=== PATIENT | male | born 1995 | race Hispanic/Latino ===

== ENCOUNTER 2021-07-26 07:43 | Day surgery (SDC) | payer BC, OTHER ==
[2021-07-25 10:47] LABS: BASOPHILS % (AUTO) 0.3 % (0.0-5.0); EOSINOPHILS % (AUTO) 3.5 % (0.0-8.0); HEMATOCRIT 44.5 % (42-54); LYMPHOCYTES % (AUTO) 24.9 % (21.0-51.0); MEAN CORPUSCULAR HEMOGLOBIN 29.5 pg (27.0-33.0); MEAN CORPUSCULAR VOLUME 89.2 fL (79-99); NEUTROPHILS % (AUTO) 60.2 % (40.0-77.0); PLATELET COUNT (AUTO) 277 K/uL (130-400); RED BLOOD CELL COUNT(AUTO) 4.99 MIL/uL (4.50-6.20); RED CELL DISTRIBUTION WIDTH 12.6 % (11.0-15.5); WHITE BLOOD COUNT (AUTO) 6.8 K/uL (4.8-10.8)
[2021-07-25 11:06] LABS: CREATININE 0.9 mg/dL (0.5-1.5); POTASSIUM 4.3 mmol/L (3.5-5.1)
[2021-07-25 15:53] VITALS: BP 150/83
[2021-07-26] VITALS (15 sets, daily range): BP systolic 106–139; BP diastolic 55–91
[~2021-07-26] VITALS: Ht 182.9 cm; Wt 115.4 kg
[~2021-07-26 07:43] MED LIST: MELATONIN PO
[2021-07-26] MEDS ORDERED: 0.9%NACL 1000ML 1,000 ML IV SCH (08:00)
[2021-07-26] MEDS ORDERED: CEFAZOLIN SODIUM 1 GM VIAL IVP ONE (08:00)
[2021-07-26] MEDS ORDERED: LIDOCAINE HCL MPF 1% 5ML VIAL ONE (10:46)
[2021-07-26] MEDS ORDERED: PROPOFOL 10 MG/ML 20ML VIAL IV ONE (10:47)
[2021-07-26] MEDS ORDERED: MIDAZOLAM HCL 1 MG/ML 2ML VIAL ONE (10:47)
[2021-07-26] MEDS ORDERED: FENTANYL CITRATE PF 50 MCG/1 ML 5ML AMP IV ONE (10:47)
[2021-07-26] MEDS ORDERED: BUPIVACAINE/PF 0.25% 30ML VIAL IJ ONE (10:58)
[2021-07-26] MEDS ORDERED: METHYLENE BLUE 5 MG/ML AMP ONE (10:58)
[2021-07-26] MEDS ORDERED: BACITRACIN 28.4 GM OINT TP ONE (11:00)
[2021-07-26] MEDS ORDERED: CEFAZOLIN SODIUM 2 GM VIAL IV ONE (11:15)
[2021-07-26] MEDS ORDERED: DEXAMETHASONE SOD PHOSPHATE 10MG/ML 1ML VIAL ONE (11:23)
[2021-07-26] MEDS ORDERED: ONDANSETRON 4MG INJ ONE (11:23)
[2021-07-26] MEDS ORDERED: LIDOCAINE HCL 2% JELLY 5 ML ONE (11:40)
[2021-07-26] MEDS ORDERED: LIDOCAINE HCL 2% PF 20 ML JEL DISP.SYRIN MM ONE (11:41)
[2021-07-26] MEDS ORDERED: LIDOCAINE HCL 2% JELLY 5 ML TP ONE (12:00)
[2021-07-26] MEDS ORDERED: BUPIVACAINE/EPI/PF 0.25% 10ML VIAL IJ ONE (12:15)
== END 2021-07-26 14:08 | disposition home or self-care (01) ==
LOC: DAH 07:43
PROVIDERS: ATTEND Student in an Organized Health Care Education/Training Program
DX: K60.3 Anal fistula (principal); Z20.822 Contact with and (suspected) exposure to COVID-19; K62.89 Other specified diseases of anus and rectum; Z82.49 Family history of ischemic heart disease and other diseases of the circulatory system; Z82.5 Family history of asthma and other chronic lower respiratory diseases; Z79.899 Other long term (current) drug therapy
CPT/HCPCS: 36415; 46020; 80048; 85025; 87635; A4215; A4221; A4222; A4223; A4344; A4606; A4663; A4930; A5113; A6260; C9803; J0690 ×2; J1100; J2250; J2405; J2704; J3010; J3490 ×3; J7030; Q9968

== ENCOUNTER 2021-11-14 22:07 | Inpatient (IN) | payer BC, OTHER ==
[~2021-11-14] VITALS: Ht 182.9 cm; Wt 118.8 kg
[2021-11-14] MEDS ORDERED: 0.9%NACL 1000ML 1,000 ML IV SCH (23:00)
[2021-11-14] MEDS ORDERED: ZOSYN 3.375GM +NS 50ML IV STA (23:02)
[2021-11-14] MEDS: CLINDAMYCIN IVPB 600MG/50ML 50 ML IV SCH (23:28)
[2021-11-14] MEDS ORDERED: ACETAMINOPHEN 325 MG TAB PO PRN (23:30)
[2021-11-14] MEDS ORDERED: MORPHINE 4 MG SYG IV PRN (23:30)
[2021-11-14] MEDS ORDERED: MORPHINE 2 MG SYG IV PRN (23:30)
[2021-11-15] MEDS: 0.9%NACL 1000ML 1,000 ML IV SCH ×3 (00:46→19:30)
[2021-11-15 01:54] LABS: BASOPHILS % (AUTO) 0.2 % (0.0-5.0); EOSINOPHILS % (AUTO) 3.4 % (0.0-8.0); HEMATOCRIT 44.8 % (42-54); LYMPHOCYTES % (AUTO) 23.3 % (21.0-51.0); MEAN CORPUSCULAR HEMOGLOBIN 29.4 pg (27.0-33.0); MEAN CORPUSCULAR HGB CONC 33.3 g/dL (32.0-36.0); MEAN CORPUSCULAR VOLUME 88.5 fL (79-99); MONOCYTES % (AUTO) 10.7 % (3.0-13.0); NEUTROPHILS % (AUTO) 62.2 % (40.0-77.0); PLATELET COUNT (AUTO) 282 K/uL (130-400); RED BLOOD CELL COUNT(AUTO) 5.06 MIL/uL (4.50-6.20); RED CELL DISTRIBUTION WIDTH 12.3 % (11.0-15.5); WHITE BLOOD COUNT (AUTO) 10.7 K/uL (4.8-10.8)
[2021-11-15 01:58] LABS: CREATININE 0.9 mg/dL (0.5-1.5); POTASSIUM 3.6 mmol/L (3.5-5.1)
[2021-11-15 02:02] LABS: ALBUMIN 4.1 g/dL (3.5-5.0); BILIRUBIN,TOTAL 0.3 mg/dL (0.2-1.0); TOTAL PROTEIN, SERUM 7.8 g/dL (6.0-8.3)
[2021-11-15] MEDS: ZOSYN 3.375GM+NS 50ML 50 ML IV SCH ×3 (05:03→21:31)
[2021-11-15 06:26] LABS: BASOPHILS % (AUTO) 0.2 % (0.0-5.0); EOSINOPHILS % (AUTO) 3.4 % (0.0-8.0); HEMATOCRIT 41.2 % (42-54); LYMPHOCYTES % (AUTO) 16.8 % (21.0-51.0); MEAN CORPUSCULAR HEMOGLOBIN 29.6 pg (27.0-33.0); MEAN CORPUSCULAR VOLUME 89.6 fL (79-99); MONOCYTES % (AUTO) 11.6 % (3.0-13.0); NEUTROPHILS % (AUTO) 67.6 % (40.0-77.0); PLATELET COUNT (AUTO) 255 K/uL (130-400); RED CELL DISTRIBUTION WIDTH 12.3 % (11.0-15.5); WHITE BLOOD COUNT (AUTO) 11.2 K/uL (4.8-10.8)
[2021-11-15 06:29] LABS: CREATININE 0.9 mg/dL (0.5-1.5); PHOSPHORUS 4.6 mg/dL (2.5-4.9); POTASSIUM 4.6 mmol/L (3.5-5.1)
[2021-11-15 07:02] LABS: INR 0.99 (0.85-1.15); PROTHROMBIN TIME 10.8 SEC (9.6-11.6)
[2021-11-15 07:03] LABS: PARTIAL THROMBOPLASTIN TIME 31.3 SEC (26.3-35.5)
[2021-11-15] MEDS: CLINDAMYCIN IVPB 600MG/50ML 50 ML IV SCH ×3 (07:57→23:59)
[2021-11-15] MEDS: FAMOTIDINE 20MG VIAL IV SCH ×2 (09:00→21:00)
[2021-11-15 11:05] VITALS: BP 132/78
[2021-11-15 15:00] VITALS: BP 118/71
[2021-11-15 20:30] VITALS: BP 137/92
[2021-11-16 01:20] VITALS: BP 122/61
[2021-11-16 04:01] VITALS: BP 93/59
[2021-11-16] MEDS: ZOSYN 3.375GM+NS 50ML 50 ML IV SCH ×3 (05:18→21:16)
[2021-11-16] MEDS: 0.9%NACL 1000ML 1,000 ML IV SCH ×2 (05:30→12:47)
[2021-11-16 05:34] LABS: BASOPHILS % (AUTO) 0.2 % (0.0-5.0); EOSINOPHILS % (AUTO) 5.2 % (0.0-8.0); HEMATOCRIT 40.2 % (42-54); LYMPHOCYTES % (AUTO) 22.4 % (21.0-51.0); MEAN CORPUSCULAR HEMOGLOBIN 29.1 pg (27.0-33.0); MEAN CORPUSCULAR HGB CONC 32.3 g/dL (32.0-36.0); MEAN CORPUSCULAR VOLUME 89.9 fL (79-99); MONOCYTES % (AUTO) 13.7 % (3.0-13.0); PLATELET COUNT (AUTO) 280 K/uL (130-400); RED BLOOD CELL COUNT(AUTO) 4.47 MIL/uL (4.50-6.20); RED CELL DISTRIBUTION WIDTH 12.1 % (11.0-15.5); WHITE BLOOD COUNT (AUTO) 8.6 K/uL (4.8-10.8)
[2021-11-16 06:00] LABS: ALBUMIN 3.4 g/dL (3.5-5.0); BILIRUBIN,TOTAL 0.3 mg/dL (0.2-1.0); CRP QUANTITATIVE 40.4 mg/L (0.00-9.0); POTASSIUM 4.2 mmol/L (3.5-5.1); TOTAL PROTEIN, SERUM 6.8 g/dL (6.0-8.3)
[2021-11-16 08:00] VITALS: BP 121/61
[2021-11-16] MEDS: FAMOTIDINE 20MG VIAL IV SCH ×2 (08:21→21:00)
[2021-11-16 11:33] VITALS: BP 124/67
[2021-11-16 16:00] VITALS: BP 131/61
[2021-11-16 20:00] VITALS: BP 133/87
[2021-11-16] MEDS ORDERED: FAMOTIDINE 20MG TAB ONE (21:27)
[2021-11-16] MEDS: FAMOTIDINE 20MG TAB PO SCH (21:48)
[2021-11-17] VITALS: BP 129/79
[2021-11-17] MEDS: 0.9%NACL 1000ML 1,000 ML IV SCH ×2 (01:30→21:46)
[2021-11-17 04:00] VITALS: BP 131/80
[2021-11-17] MEDS: ZOSYN 3.375GM+NS 50ML 50 ML IV SCH ×3 (04:57→20:55)
[2021-11-17 08:00] VITALS: BP 115/57
[2021-11-17] MEDS: FAMOTIDINE 20MG TAB PO SCH ×2 (08:41→20:55)
[2021-11-17 12:00] VITALS: BP 108/49
[2021-11-17 16:00] VITALS: BP 110/46
[2021-11-17 20:00] VITALS: BP 143/79
[2021-11-18] VITALS (7 sets, daily range): BP systolic 111–146; BP diastolic 58–77
[2021-11-18] MEDS: ZOSYN 3.375GM+NS 50ML 50 ML IV SCH ×3 (04:10→20:51)
[2021-11-18 05:30] LABS: HEMATOCRIT 43.2 % (42-54); MEAN CORPUSCULAR HGB CONC 31.7 g/dL (32.0-36.0); MEAN CORPUSCULAR VOLUME 91.3 fL (79-99); RED BLOOD CELL COUNT(AUTO) 4.73 MIL/uL (4.50-6.20); RED CELL DISTRIBUTION WIDTH 12.1 % (11.0-15.5)
[2021-11-18 05:54] LABS: ALBUMIN 3.4 g/dL (3.5-5.0); BILIRUBIN,TOTAL 0.1 mg/dL (0.2-1.0); POTASSIUM 4.3 mmol/L (3.5-5.1); TOTAL PROTEIN, SERUM 6.8 g/dL (6.0-8.3)
[2021-11-18] MEDS: FAMOTIDINE 20MG TAB PO SCH ×2 (09:54→20:51)
[2021-11-19] MEDS: 0.9%NACL 1000ML 1,000 ML IV SCH (03:57)
[2021-11-19 04:39] VITALS: BP 115/50
[2021-11-19] MEDS: ZOSYN 3.375GM+NS 50ML 50 ML IV SCH ×3 (04:45→21:39)
[2021-11-19 07:05] VITALS: BP 123/71
[2021-11-19] MEDS: FAMOTIDINE 20MG TAB PO SCH ×2 (09:00→21:39)
[2021-11-19 11:05] VITALS: BP 134/80
[2021-11-19 15:05] VITALS: BP 123/74
[2021-11-19 21:58] VITALS: BP 133/63
[2021-11-19 23:58] VITALS: BP 130/61
[2021-11-20] VITALS (24 sets, daily range): BP systolic 105–168; BP diastolic 54–98
[2021-11-20] MEDS: 0.9%NACL 1000ML 1,000 ML IV SCH ×3 (04:21→23:27)
[2021-11-20] MEDS: ZOSYN 3.375GM+NS 50ML 50 ML IV SCH ×3 (04:21→21:06)
[2021-11-20] MEDS: FAMOTIDINE 20MG TAB PO SCH ×2 (09:00→20:59)
[2021-11-20] MEDS ORDERED: NEOSTIGMINE 5MG/5ML SYR IV ONE (13:31)
[2021-11-20] MEDS ORDERED: PROPOFOL 10 MG/ML 20ML VIAL IV ONE (13:31)
[2021-11-20] MEDS ORDERED: SUCCINYLCHOLINE 200MG/10ML SYR ONE ×2 (13:31→13:32)
[2021-11-20] MEDS ORDERED: DEXAMETHASONE SOD PHOSPHATE 10MG/ML 1ML VIAL ONE (13:31)
[2021-11-20] MEDS ORDERED: ONDANSETRON 4MG INJ ONE (13:31)
[2021-11-20] MEDS ORDERED: GLYCOPYRROLATE 1 MG/5 ML SYRINGE ONE (13:31)
[2021-11-20] MEDS ORDERED: LIDOCAINE PF 100MG/5ML (2%) SYRINGE 5ML ONE ×2 (13:31→13:32)
[2021-11-20] MEDS ORDERED: MIDAZOLAM HCL 1 MG/ML 2ML VIAL ONE (13:31)
[2021-11-20] MEDS ORDERED: FENTANYL CITRATE PF 50 MCG/1 ML 2ML VIAL ONE (13:32)
[2021-11-20] MEDS ORDERED: ROCURONIUM 10MG/1ML SYR 10 MG/ML ML ONE (13:32)
[2021-11-20] MEDS ORDERED: MEPERIDINE-PF 25 MG/ML SYG ONE ×3 (13:46→14:53)
[2021-11-20] MEDS ORDERED: KETOROLAC 15MG/ML VIAL (15MG/ML) IV PRN (18:00)
[2021-11-20] MEDS ORDERED: HYDROMORPHONE 0.5 MG SYG (0.5MG/0.5ML) IVP PRN (18:00)
[2021-11-21] MEDS: ZOSYN 3.375GM+NS 50ML 50 ML IV SCH ×2 (03:41→13:33)
[2021-11-21 04:00] VITALS: BP 126/58
[2021-11-21 06:00] LABS: BASOPHILS % (AUTO) 0.2 % (0.0-5.0); EOSINOPHILS % (AUTO) 5.1 % (0.0-8.0); HEMATOCRIT 42.5 % (42-54); LYMPHOCYTES % (AUTO) 27.1 % (21.0-51.0); MEAN CORPUSCULAR HEMOGLOBIN 29.8 pg (27.0-33.0); MEAN CORPUSCULAR HGB CONC 33.4 g/dL (32.0-36.0); MEAN CORPUSCULAR VOLUME 89.3 fL (79-99); MONOCYTES % (AUTO) 10.8 % (3.0-13.0); NEUTROPHILS % (AUTO) 56.6 % (40.0-77.0); PLATELET COUNT (AUTO) 291 K/uL (130-400); RED BLOOD CELL COUNT(AUTO) 4.76 MIL/uL (4.50-6.20); RED CELL DISTRIBUTION WIDTH 12.1 % (11.0-15.5); WHITE BLOOD COUNT (AUTO) 8.5 K/uL (4.8-10.8)
[2021-11-21 06:20] LABS: ALBUMIN 3.6 g/dL (3.5-5.0); BILIRUBIN,TOTAL 0.2 mg/dL (0.2-1.0); CREATININE 1.1 mg/dL (0.5-1.5); MAGNESIUM 1.9 mg/dL (1.80-2.40); POTASSIUM 3.5 mmol/L (3.5-5.1)
[2021-11-21] MEDS: FAMOTIDINE 20MG TAB PO SCH (08:49)
[2021-11-21] MEDS ORDERED: AMOX1TAB16 PO (09:48)
[2021-11-21 10:14] VITALS: BP 138/87
[2021-11-21 14:21] VITALS: BP 109/71
== END 2021-11-21 16:30 | disposition home or self-care (01) | DRG 349 ==
LOC: EDH 22:07 → OBSVTOIN 23:04 → EDHIP 23:04 → 3AH 11-15 09:47
PROVIDERS: ADMIT Hospitalist; ATTEND Hospitalist
PROC: 0D9Q0ZZ Drainage of Anus, Open Approach (ICD-10-PCS; principal; 2021-11-20 13:29)
DX: K61.0 Anal abscess (principal); K61.1 Rectal abscess; Z20.822 Contact with and (suspected) exposure to COVID-19; Z82.5 Family history of asthma and other chronic lower respiratory diseases; Z82.49 Family history of ischemic heart disease and other diseases of the circulatory system
CPT/HCPCS: 36415; 74176; 76857; 80048; 80053; 83605; 83735; 84100; 84145; 85025; 85027; 85610; 85730; 86140; 86850; 86900; 86901; 87040; 87070; 87076; 87077; 87186; 87205; 87635; 93005; G0378; J0330; J1100; J1885; J2001; J2175; J2250; J2405; J2543; J2704; J2710; J3010; J3490; J7030